=== PATIENT | male | born 1955 | race Caucasian/White ===

== ENCOUNTER 2016-08-09 09:58 | Emergency (ER) | payer BC ==
[2016-08-09 10:20] VITALS: BP 121/72
--- NOTE | 2016-08-09 10:23 | UC ---
Respiratory Complaint HPI - HPI Summary HPI Summary: worsening cough over the past three weeks, green sputum - History of Current Complaint Chief Complaint: UCRespiratory Stated Complaint: COUGH CONGESTION Time Seen by Provider: 08/09/16 10:18 Hx Obtained From: Patient Onset/Duration: Gradual Onset, Lasting Weeks - 3, Still Present Timing: Constant Severity Initially: Moderate Severity Currently: Moderate Pain Intensity: 4 Pain Scale Used: 0-10 Numeric Character: Cough: Productive Aggravating Factors: Deep Breaths, Recumbent Position Alleviating Factors: Nothing Associated Signs And Symptoms: Positive: Chills, Pleuritic Chest Pain, Wheezing , URI, Nasal Congestion - Allergies/Home Medications Allergies/Adverse Reactions: Allergies Allergy/AdvReac Type Severity Reaction Status Date / Time No Known Allergies Allergy Verified 08/09/16 10:20 PMH/Surg Hx/FS Hx/Imm Hx Previously Healthy: Yes - Surgical History Surgical History: None - Family History Known Family History: Negative: Cardiac Disease, Hypertension, Diabetes Family History: denies cardiovascular issues in family lineage - Social History Occupation: Employed Full-time Lives: With Family Alcohol Use: None Substance Use Type: None Smoking Status (MU): Never Smoked Tobacco - Immunization History Most Recent Influenza Vaccination: fall Most Recent Tetanus Shot: UNKNOWN Most Recent Pneumonia Vaccination: UNSURE Review of Systems Constitutional: Chills, Fatigue Skin: Negative Eyes: Negative ENT: Nasal Discharge Respiratory: Cough Cardiovascular: Negative Gastrointestinal: Negative Genitourinary: Negative Motor: Negative Neurovascular: Negative Musculoskeletal: Negative Neurological: Negative Psychological: Negative All Other Systems Reviewed And Are Negative: Yes Physical Exam Triage Information Reviewed: Yes Appearance: Well-Appearing, No Pain Distress, Well-Nourished Vital Signs: Initial Vital Signs Temp 98.4 F 08/09/16 10:16 Pulse 65 08/09/16 10:16 Resp 20 08/09/16 10:16 BP 121/72 08/09/16 10:16 Pulse Ox 97 08/09/16 10:16 Vital Signs Reviewed: Yes Eye Exam: Normal Eyes: Positive: Conjunctiva Clear ENT Exam: Normal ENT: Positive: Normal ENT inspection, Hearing grossly normal, Pharynx normal, Nasal congestion, Nasal drainage, TMs normal. Negative: Tonsillar swelling, Tonsillar exudate, Trismus, Muffled/hoarse voice Dental Exam: Normal Neck exam: Normal Neck: Positive: Supple, Nontender, No Lymphadenopathy Respiratory Exam: Normal Respiratory: Positive: Chest non-tender, No respiratory distress, No accessory muscle use, Wheezing Cardiovascular Exam: Normal Cardiovascular: Positive: RRR, No Murmur, Pulses Normal, Brisk Capillary Refill Abdominal Exam: Normal Abdomen Description: Positive: Nontender, No Organomegaly, Soft Musculoskeletal Exam: Normal Musculoskeletal: Positive: Strength Intact, ROM Intact, No Edema Neurological Exam: Normal Neurological: Positive: Alert Psychological Exam: Normal Skin Exam: Normal UC Diagnostic Evaluation - Laboratory O2 Sat by Pulse Oximetry: 97 Respiratory Course/Dx - Course Course Of Treatment: zithromax, prednisone, MDI and robitussin and codiene increase fluids, follow with pcp - Differential Dx/Diagnosis Differential Diagnosis/HQI/PQRI: Asthma, Bronchitis, Exacerbation Of COPD, Laryngitis, Sinusitis Provider Diagnoses: Bronchitis with bronchospasm Discharge - Discharge Plan Condition: Stable Disposition: HOME Prescriptions: Albuterol HFA INHALER* [Ventolin HFA Inhaler*] 2 puff INH Q4H PRN #1 mdi PRN Reason: Cough Azithromycin TAB* [Zithromax TAB (Z-NATHAN) 250 mg #6 tabs] 2 tab PO .TODAY, THEN 1 DAILY #1 nathan guaiFENesin/CODIEN 100MG-10MG* [Robitussin AC 100Mg-10Mg*] 5 - 10 ml PO Q4H PRN #120 udc MDD 40 ml PRN Reason: Cough Patient Education Materials: How to Use a Metered-Dose Inhaler (ED), Acute Bronchitis (ED), Acute Cough (ED) Referrals: Bryan Vásquez MD [Primary Care Provider] - If Needed
== END 2016-08-09 10:39 | disposition home or self-care (01) ==
LOC: UCEAST 09:58
DX: J20.9 Acute bronchitis, unspecified (principal)
CPT/HCPCS: 99212; G0463

== ENCOUNTER 2016-08-16 17:58 | Emergency (ER) | payer BC ==
[2016-08-16 18:19] VITALS: BP 143/75
[2016-08-16] MEDS: DOXYcycline CAP(*) 100 MG PO ONE (18:36)
[2016-08-16] MEDS: Benzonatate CAP* 100 MG PO ONE (18:38)
--- NOTE | 2016-08-16 19:24 | UC ---
Throat Pain/Nasal Elkin HPI - HPI Summary HPI Summary: THREE WEEKS OF ONGOING COUGH CONGESTION, LAST WEEK SEEN HERE AND GIVEN AZITHROMYCIN, COUGH SYRUP, ALBUTEROL INHALER. COUGH CONTINUES. - History of Current Complaint Chief Complaint: UCRespiratory Stated Complaint: URI Time Seen by Provider: 08/16/16 18:10 Hx Obtained From: Patient Onset/Duration: Sudden Onset Severity: Mild Pain Intensity: 0 Pain Scale Used: 0-10 Numeric Cough: Nonproductive Associated Signs & Symptoms: Positive: Negative, Sinus Discomfort, Fever - Epiglottits Risk Factors Epiglottis Risk Factors: Negative - Allergies/Home Medications Allergies/Adverse Reactions: Allergies Allergy/AdvReac Type Severity Reaction Status Date / Time No Known Allergies Allergy Verified 08/09/16 10:20 PMH/Surg Hx/FS Hx/Imm Hx Previously Healthy: Yes - Surgical History Surgical History: None - Family History Known Family History: Negative: Cardiac Disease, Hypertension, Diabetes Family History: denies cardiovascular issues in family lineage - Social History Occupation: Employed Full-time Lives: With Family Alcohol Use: None Substance Use Type: None Smoking Status (MU): Never Smoked Tobacco - Immunization History Most Recent Influenza Vaccination: fall Most Recent Tetanus Shot: UNKNOWN Most Recent Pneumonia Vaccination: UNSURE Review of Systems Constitutional: Negative Skin: Negative Eyes: Negative ENT: Ear Ache, Nasal Discharge Respiratory: Cough Cardiovascular: Negative Gastrointestinal: Negative Genitourinary: Negative Motor: Negative Neurovascular: Negative Musculoskeletal: Negative Neurological: Negative Psychological: Negative All Other Systems Reviewed And Are Negative: Yes Physical Exam Triage Information Reviewed: Yes Appearance: Well-Appearing, No Pain Distress, Well-Nourished, Obese Vital Signs: Initial Vital Signs Temp 98.6 F 08/16/16 18:10 Pulse 77 08/16/16 18:10 Resp 18 08/16/16 18:10 BP 143/75 08/16/16 18:10 Pulse Ox 97 08/16/16 18:10 Vital Signs Reviewed: Yes Eye Exam: Normal ENT: Positive: Hearing grossly normal, Pharynx normal, TM bulging, TM dull Dental Exam: Normal Neck exam: Normal Neck: Positive: Supple, Nontender, No Lymphadenopathy Respiratory Exam: Normal Respiratory: Positive: Chest non-tender, Lungs clear, Normal breath sounds, No respiratory distress, No accessory muscle use Cardiovascular Exam: Normal Cardiovascular: Positive: RRR, No Murmur Abdominal Exam: Normal Musculoskeletal Exam: Normal Musculoskeletal: Positive: Strength Intact, ROM Intact Neurological Exam: Normal Psychological Exam: Normal Psychological: Positive: Normal Response To Family Skin Exam: Normal Throat Pain/Nasal Course/Dx - Differential Dx/Diagnosis Differential Diagnosis/HQI/PQRI: Otitis Media, Pharyngitis, Sinusitis, Tonsillitis, URI Provider Diagnoses: SINUSITIS. BRONCHITIS Discharge - Discharge Plan Condition: Stable Disposition: HOME Prescriptions: Benzonatate CAP* [Tessalon CAP*] 100 mg PO TID PRN #15 cap PRN Reason: Cough DOXYcycline CAP(*) [DOXYcycline 100MG CAP(*)] 100 mg PO BID #20 cap Guaifenesin-Codeine [Guaiatussin AC] 1 syp PO Q4HR #120 ml MDD 40 mL Patient Education Materials: Sinusitis (ED), Acute Bronchitis (ED), Bronchospasm (ED) Referrals: Bryan Vásquez MD [Primary Care Provider] -
== END 2016-08-16 18:46 | disposition home or self-care (01) ==
LOC: UCEAST 17:58
DX: J32.9 Chronic sinusitis, unspecified (principal); J40 Bronchitis, not specified as acute or chronic
CPT/HCPCS: 99212; A9270-GY; G0463

== ENCOUNTER 2017-07-13 16:35 | Emergency (ER) | payer BC, OTHER ==
[2017-07-13 16:48] VITALS: BP 122/57
--- NOTE | 2017-07-13 17:14 | RAD ---
INDICATION: Left hand injury COMPARISON: None TECHNIQUE: AP, lateral, and oblique views were obtained. FINDINGS: The bony structures, joint spaces, and soft tissues are normal for age. IMPRESSION: NO ACUTE FRACTURE.
--- NOTE | 2017-07-13 17:15 | RAD ---
INDICATION: Left wrist injury COMPARISON: None TECHNIQUE: AP, lateral, navicular and oblique views were obtained. FINDINGS: There is no acute fracture. 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 IMPRESSION: NO ACUTE BONY FINDINGS
--- NOTE | 2017-07-13 17:37 | UC ---
Honey Muller Gabriel, scribed for Veronika Richardson MD on 07/13/17 at 1656 . Hand/Wrist HPI - HPI Summary HPI Summary: This patient is a 62 year old M presenting to [facility] [place] [facility] with a chief complaint of pain in his left wrist since 06/24/17. Patient states at work he tripped on an object at work and tried to catch himself with his left hand, injuring it. He has been using ibuprofen, ice, and a wrist stretch splint. Pt states feels better, but still has discomfort it leans on hand. He still has full ROM of his hand and wrist. no elbow or shoulder pain. no analgesia x 1 week. Pt states wantd to make sure there is not a bone chip. pt is RHD. Patient denies numbness , tingling, elbow pain, and shoulder pain. The pain is not disturbing his sleep and he has no history of osteoporosis. Pt's medications reviewed this visit - History Of Current Complaint Chief Complaint: UCUpperExtremity Stated Complaint: WRIST PAIN Time Seen by Provider: 07/13/17 16:50 Hx Obtained From: Patient ?: No Mechanism Of Injury: trip and fall Onset/Duration: Lasting Weeks - 3, Still Present Severity Initially: Moderate Character Of Pain: Stiffness Aggravating Factor(s): Movement Alleviating Factor(s): Rest - Allergies/Home Medications Allergies/Adverse Reactions: Allergies Allergy/AdvReac Type Severity Reaction Status Date / Time No Known Allergies Allergy Verified 07/13/17 16:40 PMH/Surg Hx/FS Hx/Imm Hx Previously Healthy: Yes Other History Of: Negative For: HIV, Hepatitis B, Hepatitis C - Surgical History Surgical History: None - Family History Known Family History: Negative: Cardiac Disease, Hypertension, Diabetes, Renal Disease, Respiratory Disease, Seizure Disorder, Blood Disorder, Other Family History: denies cardiovascular issues in family lineage - Social History Occupation: Employed Full-time Alcohol Use: Occasionally Substance Use Type: None Smoking Status (MU): Never Smoked Tobacco - Immunization History Most Recent Influenza Vaccination: 2016 fall Most Recent Tetanus Shot: UNKNOWN Most Recent Pneumonia Vaccination: UNSURE Review of Systems Constitutional: Negative Motor: Other - thumb pain right All Other Systems Reviewed And Are Negative: Yes Physical Exam Triage Information Reviewed: Yes Appearance: Well-Appearing, No Pain Distress, Well-Nourished Vital Signs: Initial Vital Signs Temp 97.5 F 07/13/17 16:41 Pulse 60 07/13/17 16:41 Resp 16 07/13/17 16:41 BP 122/57 07/13/17 16:41 Pulse Ox 98 07/13/17 16:41 Vital Signs Reviewed: Yes Eyes: Positive: Conjunctiva Clear ENT: Positive: Hearing grossly normal Neck: Positive: Supple Respiratory: Positive: No respiratory distress, No accessory muscle use Cardiovascular: Positive: Other: - 2+ radial, 2+ ulnar CBT < 2 sec Musculoskeletal Exam: Normal - + abduct shoulder + flex/ext elbow + pronate/ supinat + flex/ext wrist mild tenderness with palp thenar eminence no crepitus No pain snuffbox Neurological: Positive: Other: - + thumb, a ok, finger spread, finger cross + gross sensation throughout Psychological Exam: Normal Skin Exam: Normal Hand/Wrist Course/Dx - Course Course Of Treatment: pt with discomfort thenar eminece s/p fall outstretched hand 4 weeks ago. Pt with point tenderness. Will check images. if neg, thumb spica. ortho f.u. workers comp paperwork complet. pt comfortable and in agreement with plan - Differential Dx/Diagnosis Provider Diagnoses: thumb sprain Discharge - Discharge Plan Condition: Stable Disposition: HOME Patient Education Materials: Finger Sprain (ED) Referrals: Bradford Miles MD [Medical Doctor] - Additional Instructions: - Okay to alternate ibuprofen (Advil, Motrin) and tylenol every 3 hours for pain - Wear thumb splint as much as possible until you are seen by the orthopedic provider in follow-up - Call the orthopedic office tomorrow to schedule a follow-up appointment with the hand specialist The documentation as recorded by the Honey andres Gabriel accurately reflects the service I personally performed and the decisions made by , Veronika Richardson MD.
== END 2017-07-13 17:39 | disposition home or self-care (01) ==
LOC: UCEAST 16:35
DX: S63.602A Unspecified sprain of left thumb, initial encounter (principal); W18.09XA Striking against other object with subsequent fall, initial encounter; Y93.89 Activity, other specified; Y92.89 Other specified places as the place of occurrence of the external cause; Y99.0 Civilian activity done for income or pay
CPT/HCPCS: 99212; G0463

== ENCOUNTER 2018-05-09 11:11 | Emergency (ER) | payer OTHER ==
[2018-05-09 11:40] VITALS: BP 126/61
--- NOTE | 2018-05-09 11:55 | UC ---
Respiratory Complaint HPI - HPI Summary HPI Summary: 63 yo male presents with cough and chest congestion for the last 2 weeks. He tells me that he was evaluated by his PCP 1 week ago for this and told it was viral and prescribed tessalon. He has been taking the tessalon with no relief and he feels his cough has gotten worse. His cough is keeping him up at bedtime. He denies fever, chills, SOB, chest pain, abdominal pain, n/v. - History of Current Complaint Chief Complaint: UCRespiratory Stated Complaint: COUGH Time Seen by Provider: 05/09/18 11:55 Hx Obtained From: Patient Onset/Duration: Gradual Onset Severity Currently: None Pain Intensity: 0 Pain Scale Used: 0-10 Numeric Character: Cough: Nonproductive, Cough: Productive - Allergies/Home Medications Allergies/Adverse Reactions: Allergies Allergy/AdvReac Type Severity Reaction Status Date / Time No Known Allergies Allergy Verified 05/09/18 11:36 Home Medications: Home Medications Benzonatate CAP* [Tessalon 100 MG CAP*] 1 tab PO ONCE PRN 05/09/18 [History Confirmed 05/09/18] Guaifenesin/Dextromethorphan [Robitussin Cough-Chest Dm Liq] 1 dose PO ONCE PRN 05/09/18 [History Confirmed 05/09/18] guaiFENesin [Mucinex] 600 mg PO ONCE PRN 05/09/18 [History Confirmed 05/09/18] PMH/Surg Hx/FS Hx/Imm Hx - Additional Past Medical History Additional PMH: None Other History Of: Negative For: HIV, Hepatitis B, Hepatitis C - Surgical History Surgical History: Yes Surgery Procedure, Year, and Place: lymphoma removal 2018 - Family History Known Family History: Negative: Cardiac Disease, Hypertension, Diabetes, Renal Disease, Respiratory Disease, Seizure Disorder, Blood Disorder, Other Family History: denies cardiovascular issues in family lineage - Social History Occupation: Employed Full-time Lives: With Family Alcohol Use: Occasionally Substance Use Type: None Smoking Status (MU): Never Smoked Tobacco - Immunization History Most Recent Influenza Vaccination: fall Most Recent Tetanus Shot: UNKNOWN Most Recent Pneumonia Vaccination: UNSURE Review of Systems Constitutional: Negative Skin: Negative Eyes: Negative ENT: Negative Respiratory: Cough Cardiovascular: Negative Gastrointestinal: Negative Genitourinary: Negative Neurovascular: Negative Neurological: Negative Psychological: Negative All Other Systems Reviewed And Are Negative: Yes Physical Exam - Summary Physical Exam Summary: GENERAL: NAD. WDWN. No pain distress. SKIN: No rashes, sores, lesions, or open wounds. HEENT: Head: AT/NC Eyes: Conjunctiva clear without inflammation or discharge. Ears: Hearing grossly normal. TMs intact, no bulging, erythema, or edema. Nose: Nasal mucosa pink and moist. NTTP maxillary and frontal sinus. Throat: Posterior oropharynx without exudates, erythema, or tonsillar enlargement. Uvula midline. NECK: Supple. Nontender. No lymphadenopathy. CHEST: Mild wheezing left lung. No r/r. No accessory muscle use. Breathing comfortably and in no distress. CV: RRR. Without m/r/g. Pulses intact. Cap refill <2seconds NEURO: Alert. PSYCH: Age appropriate behavior. Triage Information Reviewed: Yes Vital Signs: Initial Vital Signs Temp 98.1 F 05/09/18 11:31 Pulse 65 05/09/18 11:31 Resp 18 05/09/18 11:31 BP 126/61 05/09/18 11:31 Pulse Ox 99 05/09/18 11:31 Vital Signs Reviewed: Yes Diagnostic Evaluation - Laboratory O2 Sat by Pulse Oximetry: 99 Respiratory Course/Dx - Course Course Of Treatment: CXR: IMPRESSION: No active cardiopulmonary disease is noted. Duoneb: Mild improvement and easier work of breathing. Decreased wheezing left lung. Suspect bronchitis and will have him continue tessalon and will add in amoxicillin and cough syrup at bedtime. - Differential Dx/Diagnosis Provider Diagnoses: Bronchitis Discharge - Sign-Out/Discharge Documenting (check all that apply): Patient Departure All imaging exams completed and their final reports reviewed: Yes - Discharge Plan Condition: Stable Disposition: HOME Prescriptions: Amoxicillin PO (*) [Amoxicillin 875 MG (*)] 875 mg PO BID #14 tab Codeine Phosphate/Guaifenesin [Guaifen-Codeine 100-10 mg/5 ml] 5 ml PO BEDTIME PRN #35 ml MDD 5mL PRN Reason: Cough Patient Education Materials: Acute Bronchitis (ED) Referrals: Bryan Vásquez MD [Primary Care Provider] - Additional Instructions: If you develop a fever, shortness of breath, chest pain, new or worsening symptoms - please call your PCP or go to the ED. - Billing Disposition and Condition Condition: STABLE Disposition: Home
[2018-05-09] MEDS ORDERED: Albuterol/Ipratropium NEB.SOL* Albuterol 2.5 MG/Ipratropium 0.5 MG 3 ML INH ONE (12:01)
== END 2018-05-09 13:16 | disposition home or self-care (01) ==
LOC: UCEAST 11:11
DX: J40 Bronchitis, not specified as acute or chronic (principal)
CPT/HCPCS: 71046; 99212; A9270-GY; G0463

== ENCOUNTER 2018-10-07 16:17 | Emergency (ER) | payer OTHER ==
[2018-10-07 16:31] VITALS: BP 125/77
--- NOTE | 2018-10-07 16:37 | UC ---
Lower Extremity/Ankle HPI - HPI Summary HPI Summary: 63 yo male presents with rash to left inner thigh/knee for the last 3-4 days. He is unsure if he was bitten by anything, but states the area feels a little warm and swollen with noticeable redness. No known injury. He has been taking ibuprofen with mild relief of discomfort. He is diabetic. Denies fever, chills. - History of Current Complaint Chief Complaint: UCLowerExtremity Stated Complaint: L LEG INJURY Time Seen by Provider: 10/07/18 16:37 Hx Obtained From: Patient Onset/Duration: Gradual Onset Severity Initially: Mild Severity Currently: Mild Pain Intensity: 2 Pain Scale Used: 0-10 Numeric Able to Bear Weight: Yes - Allergies/Home Medications Allergies/Adverse Reactions: Allergies Allergy/AdvReac Type Severity Reaction Status Date / Time No Known Allergies Allergy Verified 05/09/18 11:36 Home Medications: Home Medications Ibuprofen 600 mg PO 10/07/18 [History] PMH/Surg Hx/FS Hx/Imm Hx Endocrine History: Diabetes Other History Of: Negative For: HIV, Hepatitis B, Hepatitis C - Surgical History Surgical History: Yes Surgery Procedure, Year, and Place: lymphoma removal 2018 - Family History Known Family History: Positive: None Negative: Cardiac Disease, Hypertension, Diabetes, Renal Disease, Respiratory Disease, Seizure Disorder, Blood Disorder, Other - Social History Lives: With Family Alcohol Use: Occasionally Substance Use Type: None Smoking Status (MU): Never Smoked Tobacco - Immunization History Most Recent Influenza Vaccination: 2016 fall Most Recent Tetanus Shot: UNKNOWN Most Recent Pneumonia Vaccination: UNSURE Review of Systems All Other Systems Reviewed And Are Negative: Yes Constitutional: Positive: Negative Skin: Positive: Rash Respiratory: Positive: Negative Cardiovascular: Positive: Negative Gastrointestinal: Positive: Negative Musculoskeletal: Positive: Negative Psychological: Positive: Negative Physical Exam - Summary Physical Exam Summary: GENERAL: NAD. WDWN. No pain distress. SKIN: LEFT medial knee/lower distal thigh with 12.0cm area of flat mildly erythematous skin. Mild warmth and scant edema. No puncture wound/bite. No abscess appreciated. No streaking, bleeding, or drainage. NECK: Supple. Nontender. No lymphadenopathy. CHEST: No accessory muscle use. Breathing comfortably and in no distress. CV: Pulses intact. Cap refill <2seconds NEURO: Alert. PSYCH: Age appropriate behavior. Triage Information Reviewed: Yes Vital Signs: Initial Vital Signs Temp 97.3 F 10/07/18 16:26 Pulse 57 10/07/18 16:26 Resp 16 10/07/18 16:26 BP 125/77 10/07/18 16:26 Pulse Ox 97 10/07/18 16:26 Vital Signs Reviewed: Yes Lower Extremity Course/Dx - Course Course Of Treatment: Suspect cellulitis. Advised to apply ice and will rx for clindamycin. If area worsens or does not improve within 48hrs to be rechecked. - Differential Dx/Diagnosis Provider Diagnosis: Left leg cellulitis Discharge - Sign-Out/Discharge Documenting (check all that apply): Patient Departure All imaging exams completed and their final reports reviewed: No Studies - Discharge Plan Condition: Stable Disposition: HOME Prescriptions: Clindamycin Cap(NF) [Clindamycin Cap 300 mg Cap(NF)] 300 mg PO TID #21 cap Patient Education Materials: Cellulitis (ED) Referrals: Bryan Vásquez MD [Primary Care Provider] - Additional Instructions: If you develop a fever, shortness of breath, chest pain, new or worsening symptoms - please call your PCP or go to the ED. If the area increases in size, swelling, redness, or pain - please be rechecked - Billing Disposition and Condition Condition: STABLE Disposition: Home
== END 2018-10-07 16:56 | disposition home or self-care (01) ==
LOC: UCEAST 16:17
DX: L03.116 Cellulitis of left lower limb (principal); E11.9 Type 2 diabetes mellitus without complications
CPT/HCPCS: 99212; G0463